=== PATIENT | female | born 2000 | race Hispanic/Latino ===

== ENCOUNTER 2024-08-19 23:36 | Emergency (ER) | payer OTHER, SELFPAY ==
[2024-08-19 23:39] VITALS: BP 100/69
[2024-08-19 23:46] VITALS: BP 100/69
[2024-08-20] VITALS: BP 102/64
--- NOTE | 2024-08-20 01:27 | ED.GENMED ---
History of Present Illness
General
Chief Complaint: Overdose Unintentional
Time Seen by Provider: 08/20/24 00:49
History of Present Illness
History of Present Illness:
24-year-old female without reported significant past medical history presenting to the emergency department for acute intoxication. Patient arrives with girlfriend who notes that she dropped her off at the bar this evening. Patient called her and
asked her to come pick her up. When she arrived, patient was sitting on the street with her coworkers, tremulous and out of it. Medics were subsequently called. Patient did have an episode of emesis upon arrival. Patient limited historian on
arrival given acute intoxication. Girlfriend does note that she was on antibiotics this past week for a cough. No report of additional drug use. No additional history or symptoms obtained at this time.
Past History
Past History
ED Past Medical History: Other (Migraines)
Social History
Tobacco: Non-smoker
Phy Exam
Physical Exam
Physical Exam:
General: Well-appearing, no clinical signs of dehydration, nontoxic and in no acute distress
HEENT: protecting airway, pupils equal and reactive
Neck: appears supple
CV: Normal heart rate, regular rhythm
Resp: No accessory muscle use, no increased work of breathing, lungs clear to auscultation bilaterally
Abd: Soft and non-distended, no tenderness to palpation
Extremities: No deformities, no swelling
Neuro: alert, no focal neurologic deficit
: deferred
Rectal: deferred
Psych: Normal affect
Skin: Intact
Course
Orders/Labs/Results
Orders:
Orders
08/19/24 23:54
Ondansetron Injectable [Zofran] 4 mg .ROUTE .STK-MED ONE
Vital Signs
Initial and Last Documented VS:
Initial Vital Signs
Temp Pulse Resp BP Pulse Ox
97 F 86 24 100/69 97
08/19/24 23:39 08/19/24 23:39 08/19/24 23:39 08/19/24 23:39 08/19/24 23:39
Last Documented Vital Signs
Temp Pulse Resp BP Pulse Ox
97 F 93 27 102/64 97
08/19/24 23:39 08/20/24 00:00 08/20/24 00:00 08/20/24 00:00 08/19/24 23:39
MDM/Problems Addressed
MDM/Problems Addressed:
24-year-old female presenting for acute patient. Vital signs within normal limits.
On exam, patient in no acute distress, resting comfortably. No report of trauma, no physical signs of trauma. Symptoms appear consistent with acute alcohol intoxication. Patient hemodynamically stable, nontoxic. Do not feel patient requires any
advanced workup at this time. Will continue to monitor until clinically sober for ambulation and discharge with girlfriend.
*Critical Care Note
Total Time (30-74mins, 75-104mins- exclusive of procedures): Not Applicable
ED Attending Note
-
Portions of this chart may have been created with voice recognition software.� Occasional wrong word or��sound alike� substitutions may have occurred due to the inherent limitations of voice recognition software.
Discharge Plan
Departure
Patient with high blood pressure during this ER visit?: No
Condition: Good
Discharge Problem:
Alcohol intoxication
Instructions: Alcohol Poisoning (DC), Alcohol Intoxication ED
Prescriptions:
No Action
Unobtainable
0
Referrals:
Leonor Uriarte DO [Family Provider] -
Activity Restrictions/Additional Instructions:
You were seen in the emergency department for alcohol intoxication
Please follow-up closely with your primary care physician. Please drink responsibly.
Return to the emergency department for any worsening of your symptoms, or any development of chest pain, difficulty breathing, abdominal pain with persistent vomiting and inability to tolerate food or liquid by mouth (concern for dehydration),
weakness, headache or confusion, fever greater than 100.4, or any additional symptoms that are concerning to you.
Thank you for choosing [facility].
Interventions
Interventions:
*Risk Screen - Suicide Last Done: 08/19/24 23:39
*General Assessment Last Done: 08/19/24 23:39
*Neglect/Abuse Screening Last Done: 08/19/24 23:39
*ED COVID-19 Vaccine History Last Done: 08/19/24 23:39
ED- Cardiac Assessment Last Done: 08/20/24 00:07
ED- Neurological Assessment Last Done: 08/20/24 00:07
ED-Psychological Assessment Last Done: 08/20/24 00:07
ED- Pulmonary Assessment Last Done: 08/20/24 00:07
Discharge Date and Time
Print Language: EGYPTIAN
[2024-08-20 03:00] VITALS: BP 85/63
[2024-08-20 03:25] VITALS: BP 92/57
[2024-08-20 04:45] VITALS: BP 108/60
== END 2024-08-20 04:57 | disposition home or self-care (01) ==
LOC: EMR 23:36
PROVIDERS: EMERGENCY PHYSICIAN Student in an Organized Health Care Education/Training Program; FAMILY PHYSICIAN Student in an Organized Health Care Education/Training Program
DX: F10.129 Alcohol abuse with intoxication, unspecified (principal)
CPT/HCPCS: 99282